=== PATIENT | female | born 2000 | race Hispanic/Latino ===

== ENCOUNTER 2021-06-05 20:03 | Emergency (ER) | payer MEDICARE ==
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
[2021-06-05 22:39] LABS: Basophils % (Auto) 0.4 % (0.0-1.8); Eosinophils % (Auto) 0.1 % (0.0-4.3); Hematocrit 39.1 % (30.3-42.9); Hemoglobin 13.7 gm/dl (10.1-14.3); Lymphocytes # (Auto) 1.8 K/mm3 (1.2-5.4); Lymphocytes % (Auto) 21.4 % (13.4-35.0); Mean Corpuscular HGB Conc 35 % (30-34); Mean Corpuscular Volume 89 fl (79-97); Monocytes # (Auto) 0.6 K/mm3 (0.0-0.8); Monocytes % (Auto) 7.1 % (0.0-7.3); Platelet Count 355 K/mm3 (140-440)
[2021-06-05 22:56] LABS: Blood Urea Nitrogen 8 mg/dL (7-17); Calcium 10.1 mg/dL (8.4-10.2); Hemolysis Index 3
[2021-06-05 23:04] LABS: BUN/Creatinine Ratio 11
[2021-06-06 09:08] LABS: Bacteria,Urine 2+ /HPF (Negative); Bilirubin,Urine NEG (Negative); Blood,Urine NEG (Negative); Color,Urine Amber (Yellow); Mucus,Urine 3+ /HPF
[2021-06-06 09:09] LABS: WBC,Urine > 182.0 /HPF (0.0-6.0)
[2021-06-06 09:14] LABS: Amphetamine Screen,Urine Negative; Benzodiazepines Screen,Urine Negative; Cannabinoid Screen,Urine Negative; Cocaine Screen,Urine Negative; Methadone Screen,Urine Negative; Opiate Screen,Urine Negative
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
--- NOTE | 2021-06-06 12:28 | Event Note ---
Date: 06/06/21 S: Patient has no complaints O: Vital signs are stable. Patient calm and cooperative. A: Bipolar disorder, autism P: Patient has been seen, evaluated, cleared by psychiatry team. She will be discharged at this time. Case management will be consulted as the personal half-way the patient came from does not want her to return.
--- NOTE | 2021-06-07 10:13 | Emergency Department Report ---
Blank Doc - Documentation Documentation: Patient has been seen by psychiatric services and cleared from a psychiatric p erspective and medical perspective. It was felt that this represented a behavior issue. We are awaiting case management placement.
--- NOTE | 2021-06-08 10:35 | Event Note ---
Date: 06/08/21 awaiting placement/evaluation by mental health
[2021-06-09 08:32] VITALS: BP 96/57
== END 2021-06-09 18:56 | disposition home or self-care (01) ==
LOC: ED 20:03 → EEVIPCON 20:03 → ED 06-09 18:56
DX: R41.82 Altered mental status, unspecified (principal); F22 Delusional disorders; Z91.018 Allergy to other foods
CPT/HCPCS: 36415; 80048; 80307; 80320; 81001; 84703; 85025; 99284; G0480

== ENCOUNTER 2021-06-09 22:19 | Emergency (ER) | payer MEDICARE ==
--- NOTE | 2021-06-09 23:49 | Emergency Department Report ---
ED Psych HPI - General Chief Complaint: Medical Clearance Stated Complaint: MH EVAL Time Seen by Provider: 06/09/21 23:45 Source: EMS Mode of arrival: Stretcher Limitations: No Limitations - History of Present Illness Initial Comments: Patient is a 21-year-old female who presents emergency room for agitation and aggressive behavior towards the staff at her half-way. Patient states that she was mad because they were treating her right. Patient states she started throwing chairs and tables at them. Patient states that the called EMS to bring her to the hospital. Patient states that she does not feel like she can control herself around them because they make her so mad so often. Patient denies suicidal ideation. Patient denies hallucinations. Patient brought in by EMS. EMS states the patient is not able to collect that half-way because this is the second time today she has become agitated and violent towards the staff. Patient has a history of bipolar and autism. -: Sudden Associated Psychiatric Symptoms: racing thoughts History of same: Yes Quality: constant Improves With: none Worsens With: none Context: not taking psychiatric Associated Symptoms: denies: confusion, headache, shortness of breath, nausea, vomiting, syncope, insomnia - Related Data Home Medications Medication Instructions Recorded Confirmed Last Taken Unobtainable 06/06/21 06/12/21 Unknown Allergies Allergy/AdvReac Type Severity Reaction Status Date / Time orange juice AdvReac Vomiting Verified 06/09/21 23:34 ED Review of Systems ROS: Stated complaint: MH EVAL Other details as noted in HPI Constitutional: denies: chills, fever Eyes: denies: eye pain, eye discharge, vision change ENT: denies: ear pain, throat pain Respiratory: denies: cough, shortness of breath, wheezing Cardiovascular: denies: chest pain, palpitations Endocrine: no symptoms reported Gastrointestinal: denies: abdominal pain, nausea, diarrhea Genitourinary: denies: urgency, dysuria, discharge Musculoskeletal: denies: back pain, joint swelling, arthralgia Skin: denies: rash, lesions Neurological: denies: headache, weakness, paresthesias Psychiatric: as per HPI. denies: anxiety, depression Hematological/Lymphatic: denies: easy bleeding, easy bruising ED Past Medical Hx - Past Medical History Previous Medical History?: Yes Hx Psychiatric Treatment: Yes (autism, behavior issues) - Surgical History Past Surgical History?: No - Family History Family history: no significant - Social History Smoking Status: Unknown if ever smoked Substance Use Type: None - Medications Home Medications: Home Medications Medication Instructions Recorded Confirmed Last Taken Type Unobtainable 06/06/21 06/12/21 Unknown History ED Physical Exam - General Limitations: No Limitations General appearance: alert, in no apparent distress - Head Head exam: Present: atraumatic, normocephalic - Eye Eye exam: Present: normal appearance - ENT ENT exam: Present: mucous membranes moist - Neck Neck exam: Present: normal inspection - Respiratory Respiratory exam: Present: normal lung sounds bilaterally. Absent: respiratory distress - Cardiovascular Cardiovascular Exam: Present: regular rate, normal rhythm. Absent: systolic murmur, diastolic murmur, rubs, gallop - GI/Abdominal GI/Abdominal exam: Present: soft, normal bowel sounds - Extremities Exam Extremities exam: Present: normal inspection - Back Exam Back exam: Present: normal inspection - Neurological Exam Neurological exam: Present: alert, oriented X3 - Psychiatric Psychiatric exam: Present: flat affect - Skin Skin exam: Present: warm, dry, intact, normal color. Absent: rash ED Course Vital Signs 06/09/21 06/10/21 06/10/21 23:34 00:38 07:45 Temperature 98.7 F 98.7 F 97.6 F Pulse Rate 70 70 67 Respiratory 18 18 Rate Blood Pressure 98/64 Blood Pressure 98/64 111/60 [Right] O2 Sat by Pulse 100 100 98 Oximetry 06/10/21 06/11/21 06/11/21 19:55 02:12 07:54 Temperature 98.6 F 98.6 F 99.2 F Pulse Rate 59 L 58 L 89 Respiratory 72 H 16 18 Rate Blood Pressure Blood Pressure 105/59 95/56 123/59 [Right] O2 Sat by Pulse 98 99 96 Oximetry 06/11/21 06/11/21 06/12/21 07:55 20:22 05:52 Temperature 98.8 F 98.7 F Pulse Rate 63 81 Respiratory 16 18 Rate Blood Pressure Blood Pressure 110/67 105/69 [Right] O2 Sat by Pulse 96 98 98 Oximetry 06/12/21 06/12/21 06/12/21 08:48 08:54 21:18 Temperature 97.8 F Pulse Rate 90 63 Respiratory 20 18 Rate Blood Pressure Blood Pressure 113/66 117/70 [Right] O2 Sat by Pulse 99 99 100 Oximetry 06/12/21 06/13/21 06/13/21 21:27 08:17 20:54 Temperature 98.9 F 98.6 F Pulse Rate 92 H Respiratory 18 Rate Blood Pressure Blood Pressure 123/84 [Right] O2 Sat by Pulse 98 97 Oximetry 06/13/21 06/14/21 06/14/21 20:56 08:18 20:48 Temperature 98.2 F 98.5 F Pulse Rate 77 91 H Respiratory 16 18 Rate Blood Pressure Blood Pressure 125/75 124/79 [Right] O2 Sat by Pulse 97 97 99 Oximetry 06/15/21 06/16/21 06/16/21 20:57 01:30 07:49 Temperature 98.3 F 97.3 F L 97.6 F Pulse Rate 70 70 80 Respiratory 16 18 18 Rate Blood Pressure Blood Pressure 109/66 109/75 111/62 [Right] O2 Sat by Pulse 98 98 97 Oximetry 06/16/21 06/16/21 08:38 22:28 Temperature 98.6 F Pulse Rate 98 H Respiratory 20 Rate Blood Pressure Blood Pressure 115/70 [Right] O2 Sat by Pulse 97 98 Oximetry - Reevaluation(s) Reevaluation #1: Patient is medically cleared. Patient remained in the ER as an ER hold until the patient is cleared by the psychiatry team. Patient's final disposition will come from our psychiatry. 06/10/21 02:17 ED Medical Decision Making - Lab Data Result diagrams: 06/09/21 23:52 06/09/21 23:52 - Medical Decision Making Patient is a 21-year-old female that presents emergency room for violent behavior and agitation. Patient was sent here from her half-way. Patient brought in by EMS. EMS states that the half-way states she is not welcome back. Patient was evaluated. Patient stated that she did not feel like she can control her emotions and go back to the same half-way. Patient placed on a ER hold. Patient had labs done. Patient's labs were essentially unremarkable. Patient is medically cleared. Patient will remain in the ER as an ER hold until the patient is cleared psychiatry team. Patient's final disposition will come from our psychiatry team. - Differential Diagnosis Agitation, bipolar, autism, psychosis Critical care attestation.: If time is entered above; I have spent that time in minutes in the direct care of this critically ill patient, excluding procedure time. ED Disposition Clinical Impression: Aggressive behavior, Autism, Bipolar disorder Disposition: 01 HOME / SELF CARE / HOMELESS Is pt being admited?: No Does the pt Need Aspirin: No Condition: Stable Additional Instructions: OUTPATIENT MENTAL HEALTH RESOURCES [facility], [facility] Raj Boone MD: [address], [address] [place] [address] [place] [address] [place] [facility]: [employer] [address] [place] [address] [place] [address] [phone] [facility] Integr[facility] Psychiat[facility]: [facility]: [address] [facility] [address] [facility] [place] [address] [facility] [address] [place] [facility]: Rinku Jolly MD: [address] [facility] [address] [facility] [id number] [facility]: [address] [place], [place] [id number] [phone] [place] CRISIS AND ACCESS LINE: Referrals: PRIMARY CAREMD [Primary Care Provider] - 3-5 Days Time of Disposition: 02:18
[2021-06-10 00:26] LABS: Hematocrit 37.2 % (30.3-42.9); Hemoglobin 12.9 gm/dl (10.1-14.3); Mean Corpuscular HGB Conc 35 % (30-34); Mean Corpuscular Volume 88 fl (79-97); Platelet Count 318 K/mm3 (140-440); Red Blood Count 4.22 M/mm3 (3.65-5.03); Red Cell Distribution Width 12.8 % (13.2-15.2)
[2021-06-10 00:37] LABS: Alanine Aminotransferase 15 units/L (7-56); Albumin 4.3 g/dL (3.9-5); Blood Urea Nitrogen 7 mg/dL (7-17); Calcium 9.8 mg/dL (8.4-10.2); Hemolysis Index 3
[2021-06-10 00:42] LABS: BUN/Creatinine Ratio 14
[2021-06-10 01:54] LABS: Total Cells Counted 100
[2021-06-10 01:55] LABS: Platelet Estimate Consistent w Auto; RBC Morphology Normal
[2021-06-10] MEDS ORDERED: POTASSIUM CHLORIDE ER 20 MEQ TAB PO ONE (09:40)
--- NOTE | 2021-06-10 10:23 | Consultation ---
History of Present Illness - Reason for Consult Consult date: 06/10/21 Reason for consult: agitation - History of Present Psychiatric Illness The patient was seen today, She is a 21 y/o female with a history of autism and bipolar, whom I evaluated the other day. The patient was cleared by psych, in which case management was consulted. She was sent back to her longterm. Once there she became agitated and started throwing chairs. The brought her back to the ER. During my evaluation the patient is calm and cooperative. She denies SI/HI or hallucinations. When talking with the patient and asking her why did she become upset, she replies "I don't know." She then says "If I do that again will they not let me stay there?" I told her they might not. She says "I don't won't to go there anyway." PAST PSYCHIATRIC HISTORY: Diagnoses: Autism, bipolar Suicide attempts or Self-harm behavior: Yes Prior psychiatric hospitalizations: Yes Substance Abuse history: Denies Previous psychiatric medications tried: seroquel Outpatient treatment: Yes PAST MEDICAL HISTORY: None reported or document Family Psychiatric History: None reported or documented SOCIAL HISTORY Marital Status: Single Living Arrangements: [facility] Employment Status: disabled Access to guns/weapons: Denies Education: History of Abuse: denies Legal History: Denies REVIEW OF SYSTEMS Constitutional: Negative for weight loss ENT: Negative for stridor Respiratory: Negative for cough or hemoptysis All other systems reviewed and are negative MENTAL STATUS EXAMINATION General Appearance and Behavior: Age appropriate, good hygiene, wearing appr opriate clothes, calm, polite, cooperative Cooperation: Cooperative Psychomotor Behavior: Psychomotor normal Mood: good Affect and affective range: Congruent with stated mood Thought Process: circumstantial Thought Content: None Speech: Normal volume, Regular rate and rhythm, Suicidal Ideation: Denies Homicidal Ideation:Denies Hallucinations: Denies Delusions:Denies Impulse Control: Impaired Insight and Judgment: poor Memory: limited Attention: attentive Orientation: alert and oriented Assessment (1) Austic Disorder (2) Hx of Bipolar Treatment Plan Continue home medications previously prescribed The patient to comply with previously prescribed medications Risks, benefits and alternatives of medications discussed with the patient, questions answered and consent obtained from patient. PSYCHOTHERAPY: Supportive psychotherapy provided MEDICAL: Per primary team DELIRIUM PRECAUTIONS: Please re-orient patient frequently, keep lights on during the day, and minimize benzodiazepines and opiates as these medications could worsen patient's confusion. 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 FOLLOW-UP: Will sing off. Thanks Case staffed with Dr. Hurst Medications and Allergies Allergies Allergy/AdvReac Type Severity Reaction Status Date / Time orange juice AdvReac Vomiting Verified 06/09/21 23:34 Home Medications Medication Instructions Recorded Confirmed Last Taken Type Unobtainable 06/06/21 06/06/21 Unknown History Mental Status Exam - Vital signs Last Vital Signs Temp 97.6 F 06/10/21 07:45 Pulse 67 06/10/21 07:45 Resp 18 06/10/21 07:45 BP 111/60 06/10/21 07:45 Pulse Ox 98 06/10/21 07:45 Results Result Diagrams: 06/09/21 23:52 06/09/21 23:52 Abnormal lab results 06/09/21 06/09/21 06/09/21 Range/Units 23:52 23:52 23:52 MCHC 35 H (30-34) % RDW 12.8 L (13.2-15.2) % Potassium 3.4 L (3.6-5.0) mmol/L Creatinine 0.5 L (0.6-1.2) mg/dL Salicylates < 0.3 L (2.8-20.0) mg/dL Acetaminophen (10.0-30.0) ug/mL 06/09/21 Range/Units 23:52 MCHC (30-34) % RDW (13.2-15.2) % Potassium (3.6-5.0) mmol/L Creatinine (0.6-1.2) mg/dL Salicylates (2.8-20.0) mg/dL Acetaminophen 5.0 L (10.0-30.0) ug/mL All other labs normal.
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
[2021-06-10] MEDS ORDERED: ZIPRASIDONE MESYLATE 20 MG VIAL IM ONE ×2 (10:50→10:53)
[2021-06-10] MEDS ORDERED: WATER FOR INJ Sterile (PF) 10 ML ONE (10:53)
--- NOTE | 2021-06-11 19:10 | Event Note ---
Date: 06/11/21 Patient still waiting for case management resolution of her her case. Patient still medically stable with no issues.
--- NOTE | 2021-06-12 11:41 | Emergency Department Report ---
Blank Doc - Documentation Documentation: Patient rests comfortably. We are awaiting case management resolution. Patient has been in and out of multiple personal care homes. Due to developmental delay versus autism versus some of her behavioral issues, she has been return to the ED multiple times. Case management has been facilitating state reporting of these facilities that do not put this patient. She remains medically stable at this time.
--- NOTE | 2021-06-13 13:27 | Emergency Department Report ---
Blank Doc - Documentation Documentation: Patient is resting today. Case management disposition is still pending.
[2021-06-14] MEDS ORDERED: diphenhydrAMINE 25 MG CAP PO PRN (10:48)
[2021-06-14] MEDS ORDERED: ACETAMINOPHEN 325 MG TAB PO PRN (10:48)
[2021-06-14] MEDS ORDERED: ONDANSETRON 4 MG ODT TAB PO PRN (10:48)
--- NOTE | 2021-06-14 10:52 | Event Note ---
Date: 06/14/21 The patient was evaluated in the emergency department for symptoms described in the history of present illness. He/she was evaluated in the context of the global COVID-19 pandemic, which necessitated consideration that the patient might be at risk for infection with the virus that causes COVID-19. Institutional protocols and algorithms that pertain to the evaluation of patients at risk for COVID-19 are in a state of rapid change based on information released by regulatory bodies including the CDC and federal and state organizations. These policies and algorithms were followed during the patient's care in the emergency department. Please note that these policies, procedures and recommendations changed on a rapid basis. Patient resting comfortably in stretcher. She is in no acute distress. Nursing team endorses no acute issues. She was deemed medically suitable for discharge on her initial ER evaluation. She remains medically suitable for discharge at this time. Prior urinalysis from previous visit is reviewed and appreciated. Uncertain of treatment is initiated. Have requested repeat urinalysis. Have requested that nursing team reconcile home medications. This patient remains medically suitable for social disposition at this time, which appears to be her major issue. Unfortunately, secondary to this patient's developmental delay/autism, she cannot be discharged on her own recognizance, and will require a half-way or adult to assume care for her, thus our case management team is involved. Their input and recommendations are reviewed and appreciated. As needed medications are ordered. Vital Signs 06/09/21 06/10/21 06/10/21 23:34 00:38 07:45 Temperature 98.7 F 98.7 F 97.6 F Pulse Rate 70 70 67 Respiratory 18 18 Rate Blood Pressure 98/64 Blood Pressure 98/64 111/60 [Right] O2 Sat by Pulse 100 100 98 Oximetry 06/10/21 06/11/21 06/11/21 19:55 02:12 07:54 Temperature 98.6 F 98.6 F 99.2 F Pulse Rate 59 L 58 L 89 Respiratory 72 H 16 18 Rate Blood Pressure Blood Pressure 105/59 95/56 123/59 [Right] O2 Sat by Pulse 98 99 96 Oximetry 06/11/21 06/11/21 06/12/21 07:55 20:22 05:52 Temperature 98.8 F 98.7 F Pulse Rate 63 81 Respiratory 16 18 Rate Blood Pressure Blood Pressure 110/67 105/69 [Right] O2 Sat by Pulse 96 98 98 Oximetry 06/12/21 06/12/21 06/12/21 08:48 08:54 21:18 Temperature 97.8 F Pulse Rate 90 63 Respiratory 20 18 Rate Blood Pressure Blood Pressure 113/66 117/70 [Right] O2 Sat by Pulse 99 99 100 Oximetry 06/12/21 06/13/21 06/13/21 21:27 08:17 20:54 Temperature 98.9 F 98.6 F Pulse Rate 92 H Respiratory 18 Rate Blood Pressure Blood Pressure 123/84 [Right] O2 Sat by Pulse 98 97 Oximetry 06/13/21 06/14/21 20:56 08:18 Temperature 98.2 F 98.5 F Pulse Rate 77 91 H Respiratory 16 18 Rate Blood Pressure Blood Pressure 125/75 124/79 [Right] O2 Sat by Pulse 97 97 Oximetry Lab Results 06/09/21 06/09/21 06/09/21 Range/Units 23:52 23:52 23:52 WBC 8.0 (4.5-11.0) K/mm3 RBC 4.22 (3.65-5.03) M/mm3 Hgb 12.9 (10.1-14.3) gm/dl Hct 37.2 (30.3-42.9) % MCV 88 (79-97) fl MCH 31 (28-32) pg MCHC 35 H (30-34) % RDW 12.8 L (13.2-15.2) % Plt Count 318 (140-440) K/mm3 [place] % (Auto) Associate Merchandiser Add Manual Diff Complete Total Counted 100 Seg Neuts % (Manual) 65.0 (40.0-70.0) % Lymphocytes % (Manual) 32.0 (13.4-35.0) % Monocytes % (Manual) 3.0 (0.0-7.3) % Nucleated RBC % Not Reportable Seg Neutrophils # Man 5.2 (1.8-7.7) K/mm3 Band Neutrophils # 0.0 K/mm3 Lymphocytes # (Manual) 2.6 (1.2-5.4) K/mm3 Abs React Lymphs (Man) 0.0 K/mm3 Monocytes # (Manual) 0.2 (0.0-0.8) K/mm3 Eosinophils # (Manual) 0.0 (0.0-0.4) K/mm3 Basophils # (Manual) 0.0 (0.0-0.1) K/mm3 Metamyelocytes # 0.0 K/mm3 Myelocytes # 0.0 K/mm3 Promyelocytes # 0.0 K/mm3 Blast Cells # 0.0 K/mm3 WBC Morphology Not Reportable Hypersegmented Neuts Not Reportable Hyposegmented Neuts Not Reportable Hypogranular Neuts Not Reportable Smudge Cells Not Reportable Toxic Granulation Not Reportable Toxic Vacuolation Not Reportable Dohle Bodies Not Reportable Pelger-Huet Anomaly Not Reportable Deanna Rods Not Reportable Platelet Estimate Consistent w auto Clumped Platelets Not Reportable Plt Clumps, EDTA Not Reportable Large Platelets Not Reportable Giant Platelets Not Reportable Platelet Satelliting Not Reportable Plt Morphology Comment Not Reportable RBC Morphology Normal Dimorphic RBCs Not Reportable Polychromasia Not Reportable Hypochromasia Not Reportable Poikilocytosis Not Reportable Anisocytosis Not Reportable Microcytosis Not Reportable Macrocytosis Not Reportable Spherocytes Not Reportable Pappenheimer Bodies Not Reportable Sickle Cells Not Reportable Target Cells Not Reportable Tear Drop Cells Not Reportable Ovalocytes Not Reportable Helmet Cells Not Reportable Marie-[place] Bodies Not Reportable Gunlock Rings Not Reportable [place] Cells Not Reportable Bite Cells Not Reportable Crenated Cell Not Reportable Elliptocytes Not Reportable Acanthocytes (Spur) Not Reportable Rouleaux Not Reportable Hemoglobin C Crystals Not Reportable Schistocytes Not Reportable Malaria parasites Not Reportable Robb Bodies Not Reportable Hem Pathologist Commnt No Sodium 138 (137-145) mmol/L Potassium 3.4 L (3.6-5.0) mmol/L Chloride 100.7 (98-107) mmol/L Carbon Dioxide 22 (22-30) mmol/L Anion Gap 19 mmol/L BUN 7 (7-17) mg/dL Creatinine 0.5 L (0.6-1.2) mg/dL Estimated GFR > 60 ml/min BUN/Creatinine Ratio 14 % Glucose 96 (65-100) mg/dL Calcium 9.8 (8.4-10.2) mg/dL Total Bilirubin 0.20 (0.1-1.2) mg/dL AST 14 (5-40) units/L ALT 15 (7-56) units/L Alkaline Phosphatase 79 (35-129) units/L Total Protein 7.1 (6.3-8.2) g/dL Albumin 4.3 (3.9-5) g/dL Albumin/Globulin Ratio 1.5 % HCG, Qual (Negative) Salicylates < 0.3 L (2.8-20.0) mg/dL Acetaminophen (10.0-30.0) ug/mL Plasma/Serum Alcohol (0-0.07) % Coronavirus (PCR) (Negative) 06/09/21 06/09/21 06/09/21 Range/Units 23:52 23:52 23:52 WBC (4.5-11.0) K/mm3 RBC (3.65-5.03) M/mm3 Hgb (10.1-14.3) gm/dl Hct (30.3-42.9) % MCV (79-97) fl MCH (28-32) pg MCHC (30-34) % RDW (13.2-15.2) % Plt Count (140-440) K/mm3 [place] % (Auto) Add Manual Diff Total Counted Seg Neuts % (Manual) (40.0-70.0) % Lymphocytes % (Manual) (13.4-35.0) % Monocytes % (Manual) (0.0-7.3) % Nucleated RBC % Seg Neutrophils # Man (1.8-7.7) K/mm3 Band Neutrophils # K/mm3 Lymphocytes # (Manual) (1.2-5.4) K/mm3 Abs React Lymphs (Man) K/mm3 Monocytes # (Manual) (0.0-0.8) K/mm3 Eosinophils # (Manual) (0.0-0.4) K/mm3 Basophils # (Manual) (0.0-0.1) K/mm3 Metamyelocytes # K/mm3 Myelocytes # K/mm3 Promyelocytes # K/mm3 Blast Cells # K/mm3 WBC Morphology Hypersegmented Neuts Hyposegmented Neuts Hypogranular Neuts Smudge Cells Toxic Granulation Toxic Vacuolation Dohle Bodies Pelger-Huet Anomaly Deanna Rods Platelet Estimate Clumped Platelets Plt Clumps, EDTA Large Platelets Giant Platelets Platelet Satelliting Plt Morphology Comment RBC Morphology Dimorphic RBCs Polychromasia Hypochromasia Poikilocytosis Anisocytosis Microcytosis Macrocytosis Spherocytes Pappenheimer Bodies Sickle Cells Target Cells Tear Drop Cells Ovalocytes Helmet Cells Marie-[place] Bodies Gunlock Rings [place] Cells Bite Cells Crenated Cell Elliptocytes Acanthocytes (Spur) Rouleaux Hemoglobin C Crystals Schistocytes Malaria parasites Robb Bodies Hem Pathologist Commnt Sodium (137-145) mmol/L Potassium (3.6-5.0) mmol/L Chloride (98-107) mmol/L Carbon Dioxide (22-30) mmol/L Anion Gap mmol/L BUN (7-17) mg/dL Creatinine (0.6-1.2) mg/dL Estimated GFR ml/min BUN/Creatinine Ratio % Glucose (65-100) mg/dL Calcium (8.4-10.2) mg/dL Total Bilirubin (0.1-1.2) mg/dL AST (5-40) units/L ALT (7-56) units/L Alkaline Phosphatase (35-129) units/L Total Protein (6.3-8.2) g/dL Albumin (3.9-5) g/dL Albumin/Globulin Ratio % HCG, Qual Negative (Negative) Salicylates (2.8-20.0) mg/dL Acetaminophen 5.0 L (10.0-30.0) ug/mL Plasma/Serum Alcohol < 0.01 (0-0.07) % Coronavirus (PCR) (Negative) 06/10/21 Range/Units Unknown WBC (4.5-11.0) K/mm3 RBC (3.65-5.03) M/mm3 Hgb (10.1-14.3) gm/dl Hct (30.3-42.9) % MCV (79-97) fl MCH (28-32) pg MCHC (30-34) % RDW (13.2-15.2) % Plt Count (140-440) K/mm3 [place] % (Auto) Add Manual Diff Total Counted Seg Neuts % (Manual) (40.0-70.0) % Lymphocytes % (Manual) (13.4-35.0) % Monocytes % (Manual) (0.0-7.3) % Nucleated RBC % Seg Neutrophils # Man (1.8-7.7) K/mm3 Band Neutrophils # K/mm3 Lymphocytes # (Manual) (1.2-5.4) K/mm3 Abs React Lymphs (Man) K/mm3 Monocytes # (Manual) (0.0-0.8) K/mm3 Eosinophils # (Manual) (0.0-0.4) K/mm3 Basophils # (Manual) (0.0-0.1) K/mm3 Metamyelocytes # K/mm3 Myelocytes # K/mm3 Promyelocytes # K/mm3 Blast Cells # K/mm3 WBC Morphology Hypersegmented Neuts Hyposegmented Neuts Hypogranular Neuts Smudge Cells Toxic Granulation Toxic Vacuolation Dohle Bodies Pelger-Huet Anomaly Deanna Rods Platelet Estimate Clumped Platelets Plt Clumps, EDTA Large Platelets Giant Platelets Platelet Satelliting Plt Morphology Comment RBC Morphology Dimorphic RBCs Polychromasia Hypochromasia Poikilocytosis Anisocytosis Microcytosis Macrocytosis Spherocytes Pappenheimer Bodies Sickle Cells Target Cells Tear Drop Cells Ovalocytes Helmet Cells Marie-[place] Bodies Gunlock Rings [place] Cells Bite Cells Crenated Cell Elliptocytes Acanthocytes (Spur) Rouleaux Hemoglobin C Crystals Schistocytes Malaria parasites Robb Bodies Hem Pathologist Commnt Sodium (137-145) mmol/L Potassium (3.6-5.0) mmol/L Chloride (98-107) mmol/L Carbon Dioxide (22-30) mmol/L Anion Gap mmol/L BUN (7-17) mg/dL Creatinine (0.6-1.2) mg/dL Estimated GFR ml/min BUN/Creatinine Ratio % Glucose (65-100) mg/dL Calcium (8.4-10.2) mg/dL Total Bilirubin (0.1-1.2) mg/dL AST (5-40) units/L ALT (7-56) units/L Alkaline Phosphatase (35-129) units/L Total Protein (6.3-8.2) g/dL Albumin (3.9-5) g/dL Albumin/Globulin Ratio % HCG, Qual (Negative) Salicylates (2.8-20.0) mg/dL Acetaminophen (10.0-30.0) ug/mL Plasma/Serum Alcohol (0-0.07) % Coronavirus (PCR) Negative (Negative)
--- NOTE | 2021-06-16 10:41 | Event Note ---
Date: 06/16/21 Patient is 21 years old female with history of autism. Patient has been in the ER for few days now waiting for case management placement. Patient is quiet with no issues overnight. Vital signs reviewed and is unremarkable. We will continue to monitor.
[2021-06-16] MEDS ORDERED: ACETAMINOPHEN 325 MG TAB PO ONE (15:05)
[2021-06-16] MEDS ORDERED: LORazepam 2 MG/ML VIAL ONE (16:57)
[2021-06-16] MEDS: LORazepam 2 MG/ML VIAL IM PRN (17:03)
--- NOTE | 2021-06-17 10:30 | Event Note ---
Date: 06/17/21 Patient sleeping comfortably no acute distress. No overnight issues. Vital signs reviewed and stable. Patient is pending placement by case management.
--- NOTE | 2021-06-18 16:33 | Event Note ---
Date: 06/18/21 Patient has been cleared by psych. We are still currently awaiting case management placement. Vital signs are stable. Patient has no complaints.
--- NOTE | 2021-06-19 16:25 | Event Note ---
Date: 06/19/21 Still awaiting case management placement. No overnight events per nursing. Patient has no complaints. She is calm and cooperative.
--- NOTE | 2021-06-20 12:38 | Event Note ---
Date: 06/20/21 Patient is still waiting case management placement. No events overnight. Vital signs have been reassuring including being afebrile. We will continue to monitor during her ED course.
--- NOTE | 2021-06-21 12:37 | Event Note ---
Date: 06/21/21 Awaiting case management placement. No overnight events per nursing. Patient has no complaints. She is calm and cooperative.
[2021-06-22] MEDS ORDERED: ZIPRASIDONE MESYLATE 20 MG VIAL IM ONE (19:57)
--- NOTE | 2021-06-23 10:29 | Event Note ---
Vital signs stable. No current medical issues. Awaiting placement.
--- NOTE | 2021-06-23 13:38 | Event Note ---
Date: 06/23/21 Daisy Huggins is a 21y/o female patient whom was evaluated and cleared by psych not long after her presentation to the ER. The patient was brought in for behavioral issues; agitation, combativeness. Received from Dani Borrego welfare case worker, and Norma Gimenez, welfare case worker for ER stating they had secured placment for the patient but the custodial is not willing to take the patient without being on any medication for agitation and combativeness. Risperidone 0.5mg po BID #60, no refills called in to [facility],
[2021-06-23] MEDS ORDERED: ACETAMINOPHEN 325 MG TAB ONE (22:50)
--- NOTE | 2021-06-24 11:07 | Event Note ---
Date: 06/24/21 Patient was cleared by the psychiatry team yesterday and the patient's residential refused to take the patient unless something was prescribed for agitation. This was called into a pharmacy yesterday but the patient still has not secured transportation. Patient has had no changes in condition overnight and the patient is stable for discharge. Discussed with nurse at this time to reevaluate the patient's transportation status.
--- NOTE | 2021-06-25 11:05 | Event Note ---
Date: 06/25/21 Patient seen and examined. She does not endorse any acute complaints to myself. She was discharged yesterday. I am told that nobody answered the door or phone call at the receiving residence, and I am also told that local law enforcement have been involved by our case management team, to complete the process of transporting this patient back to receiving facility. Laboratory studies, vital signs, case management, nursing documentation reviewed and appreciated. Prior documentation reviewed and appreciated. The patient remains medically suitable for disposition and discharge from the emergency room at this time. Lab Results 06/09/21 06/09/21 06/09/21 Range/Units 23:52 23:52 23:52 WBC 8.0 (4.5-11.0) K/mm3 RBC 4.22 (3.65-5.03) M/mm3 Hgb 12.9 (10.1-14.3) gm/dl Hct 37.2 (30.3-42.9) % MCV 88 (79-97) fl MCH 31 (28-32) pg MCHC 35 H (30-34) % RDW 12.8 L (13.2-15.2) % Plt Count 318 (140-440) K/mm3 [place] % (Auto) Toucher Up Add Manual Diff Complete Total Counted 100 Seg Neuts % (Manual) 65.0 (40.0-70.0) % Lymphocytes % (Manual) 32.0 (13.4-35.0) % Monocytes % (Manual) 3.0 (0.0-7.3) % Nucleated RBC % Not Reportable Seg Neutrophils # Man 5.2 (1.8-7.7) K/mm3 Band Neutrophils # 0.0 K/mm3 Lymphocytes # (Manual) 2.6 (1.2-5.4) K/mm3 Abs React Lymphs (Man) 0.0 K/mm3 Monocytes # (Manual) 0.2 (0.0-0.8) K/mm3 Eosinophils # (Manual) 0.0 (0.0-0.4) K/mm3 Basophils # (Manual) 0.0 (0.0-0.1) K/mm3 Metamyelocytes # 0.0 K/mm3 Myelocytes # 0.0 K/mm3 Promyelocytes # 0.0 K/mm3 Blast Cells # 0.0 K/mm3 WBC Morphology Not Reportable Hypersegmented Neuts Not Reportable Hyposegmented Neuts Not Reportable Hypogranular Neuts Not Reportable Smudge Cells Not Reportable Toxic Granulation Not Reportable Toxic Vacuolation Not Reportable Dohle Bodies Not Reportable Pelger-Huet Anomaly Not Reportable Deanna Rods Not Reportable Platelet Estimate Consistent w auto Clumped Platelets Not Reportable Plt Clumps, EDTA Not Reportable Large Platelets Not Reportable Giant Platelets Not Reportable Platelet Satelliting Not Reportable Plt Morphology Comment Not Reportable RBC Morphology Normal Dimorphic RBCs Not Reportable Polychromasia Not Reportable Hypochromasia Not Reportable Poikilocytosis Not Reportable Anisocytosis Not Reportable Microcytosis Not Reportable Macrocytosis Not Reportable Spherocytes Not Reportable Pappenheimer Bodies Not Reportable Sickle Cells Not Reportable Target Cells Not Reportable Tear Drop Cells Not Reportable Ovalocytes Not Reportable Helmet Cells Not Reportable [place] Bodies Not Reportable Gaastra Rings Not Reportable [place] Cells Not Reportable Bite Cells Not Reportable Crenated Cell Not Reportable Elliptocytes Not Reportable Acanthocytes (Spur) Not Reportable Rouleaux Not Reportable Hemoglobin C Crystals Not Reportable Schistocytes Not Reportable Malaria parasites Not Reportable Robb Bodies Not Reportable Hem Pathologist Commnt No Sodium 138 (137-145) mmol/L Potassium 3.4 L (3.6-5.0) mmol/L Chloride 100.7 (98-107) mmol/L Carbon Dioxide 22 (22-30) mmol/L Anion Gap 19 mmol/L BUN 7 (7-17) mg/dL Creatinine 0.5 L (0.6-1.2) mg/dL Estimated GFR > 60 ml/min BUN/Creatinine Ratio 14 % Glucose 96 (65-100) mg/dL Calcium 9.8 (8.4-10.2) mg/dL Total Bilirubin 0.20 (0.1-1.2) mg/dL AST 14 (5-40) units/L ALT 15 (7-56) units/L Alkaline Phosphatase 79 (35-129) units/L Total Protein 7.1 (6.3-8.2) g/dL Albumin 4.3 (3.9-5) g/dL Albumin/Globulin Ratio 1.5 % HCG, Qual (Negative) Salicylates < 0.3 L (2.8-20.0) mg/dL Acetaminophen (10.0-30.0) ug/mL Plasma/Serum Alcohol (0-0.07) % Coronavirus (PCR) (Negative) 06/09/21 06/09/21 06/09/21 Range/Units 23:52 23:52 23:52 WBC (4.5-11.0) K/mm3 RBC (3.65-5.03) M/mm3 Hgb (10.1-14.3) gm/dl Hct (30.3-42.9) % MCV (79-97) fl MCH (28-32) pg MCHC (30-34) % RDW (13.2-15.2) % Plt Count (140-440) K/mm3 [place] % (Auto) Add Manual Diff Total Counted Seg Neuts % (Manual) (40.0-70.0) % Lymphocytes % (Manual) (13.4-35.0) % Monocytes % (Manual) (0.0-7.3) % Nucleated RBC % Seg Neutrophils # Man (1.8-7.7) K/mm3 Band Neutrophils # K/mm3 Lymphocytes # (Manual) (1.2-5.4) K/mm3 Abs React Lymphs (Man) K/mm3 Monocytes # (Manual) (0.0-0.8) K/mm3 Eosinophils # (Manual) (0.0-0.4) K/mm3 Basophils # (Manual) (0.0-0.1) K/mm3 Metamyelocytes # K/mm3 Myelocytes # K/mm3 Promyelocytes # K/mm3 Blast Cells # K/mm3 WBC Morphology Hypersegmented Neuts Hyposegmented Neuts Hypogranular Neuts Smudge Cells Toxic Granulation Toxic Vacuolation Dohle Bodies Pelger-Huet Anomaly Deanna Rods Platelet Estimate Clumped Platelets Plt Clumps, EDTA Large Platelets Giant Platelets Platelet Satelliting Plt Morphology Comment RBC Morphology Dimorphic RBCs Polychromasia Hypochromasia Poikilocytosis Anisocytosis Microcytosis Macrocytosis Spherocytes Pappenheimer Bodies Sickle Cells Target Cells Tear Drop Cells Ovalocytes Helmet Cells [place] Bodies Gaastra Rings [place] Cells Bite Cells Crenated Cell Elliptocytes Acanthocytes (Spur) Rouleaux Hemoglobin C Crystals Schistocytes Malaria parasites Robb Bodies Hem Pathologist Commnt Sodium (137-145) mmol/L Potassium (3.6-5.0) mmol/L Chloride (98-107) mmol/L Carbon Dioxide (22-30) mmol/L Anion Gap mmol/L BUN (7-17) mg/dL Creatinine (0.6-1.2) mg/dL Estimated GFR ml/min BUN/Creatinine Ratio % Glucose (65-100) mg/dL Calcium (8.4-10.2) mg/dL Total Bilirubin (0.1-1.2) mg/dL AST (5-40) units/L ALT (7-56) units/L Alkaline Phosphatase (35-129) units/L Total Protein (6.3-8.2) g/dL Albumin (3.9-5) g/dL Albumin/Globulin Ratio % HCG, Qual Negative (Negative) Salicylates (2.8-20.0) mg/dL Acetaminophen 5.0 L (10.0-30.0) ug/mL Plasma/Serum Alcohol < 0.01 (0-0.07) % Coronavirus (PCR) (Negative) 06/10/21 06/24/21 Range/Units Unknown 08:23 WBC (4.5-11.0) K/mm3 RBC (3.65-5.03) M/mm3 Hgb (10.1-14.3) gm/dl Hct (30.3-42.9) % MCV (79-97) fl MCH (28-32) pg MCHC (30-34) % RDW (13.2-15.2) % Plt Count (140-440) K/mm3 [place] % (Auto) Add Manual Diff Total Counted Seg Neuts % (Manual) (40.0-70.0) % Lymphocytes % (Manual) (13.4-35.0) % Monocytes % (Manual) (0.0-7.3) % Nucleated RBC % Seg Neutrophils # Man (1.8-7.7) K/mm3 Band Neutrophils # K/mm3 Lymphocytes # (Manual) (1.2-5.4) K/mm3 Abs React Lymphs (Man) K/mm3 Monocytes # (Manual) (0.0-0.8) K/mm3 Eosinophils # (Manual) (0.0-0.4) K/mm3 Basophils # (Manual) (0.0-0.1) K/mm3 Metamyelocytes # K/mm3 Myelocytes # K/mm3 Promyelocytes # K/mm3 Blast Cells # K/mm3 WBC Morphology Hypersegmented Neuts Hyposegmented Neuts Hypogranular Neuts Smudge Cells Toxic Granulation Toxic Vacuolation Dohle Bodies Pelger-Huet Anomaly Deanna Rods Platelet Estimate Clumped Platelets Plt Clumps, EDTA Large Platelets Giant Platelets Platelet Satelliting Plt Morphology Comment RBC Morphology Dimorphic RBCs Polychromasia Hypochromasia Poikilocytosis Anisocytosis Microcytosis Macrocytosis Spherocytes Pappenheimer Bodies Sickle Cells Target Cells Tear Drop Cells Ovalocytes Helmet Cells [place] Bodies Gaastra Rings [place] Cells Bite Cells Crenated Cell Elliptocytes Acanthocytes (Spur) Rouleaux Hemoglobin C Crystals Schistocytes Malaria parasites Robb Bodies Hem Pathologist Commnt Sodium (137-145) mmol/L Potassium (3.6-5.0) mmol/L Chloride (98-107) mmol/L Carbon Dioxide (22-30) mmol/L Anion Gap mmol/L BUN (7-17) mg/dL Creatinine (0.6-1.2) mg/dL Estimated GFR ml/min BUN/Creatinine Ratio % Glucose (65-100) mg/dL Calcium (8.4-10.2) mg/dL Total Bilirubin (0.1-1.2) mg/dL AST (5-40) units/L ALT (7-56) units/L Alkaline Phosphatase (35-129) units/L Total Protein (6.3-8.2) g/dL Albumin (3.9-5) g/dL Albumin/Globulin Ratio % HCG, Qual (Negative) Salicylates (2.8-20.0) mg/dL Acetaminophen (10.0-30.0) ug/mL Plasma/Serum Alcohol (0-0.07) % Coronavirus (PCR) Negative Negative (Negative) Vital Signs 06/09/21 06/10/21 06/10/21 23:34 00:38 07:45 Temperature 98.7 F 98.7 F 97.6 F Pulse Rate 70 70 67 Respiratory 18 18 Rate Blood Pressure 98/64 Blood Pressure 98/64 111/60 [Right] O2 Sat by Pulse 100 100 98 Oximetry 06/10/21 06/11/21 06/11/21 19:55 02:12 07:54 Temperature 98.6 F 98.6 F 99.2 F Pulse Rate 59 L 58 L 89 Respiratory 72 H 16 18 Rate Blood Pressure Blood Pressure 105/59 95/56 123/59 [Right] O2 Sat by Pulse 98 99 96 Oximetry 06/11/21 06/11/21 06/12/21 07:55 20:22 05:52 Temperature 98.8 F 98.7 F Pulse Rate 63 81 Respiratory 16 18 Rate Blood Pressure Blood Pressure 110/67 105/69 [Right] O2 Sat by Pulse 96 98 98 Oximetry 06/12/21 06/12/21 06/12/21 08:48 08:54 21:18 Temperature 97.8 F Pulse Rate 90 63 Respiratory 20 18 Rate Blood Pressure Blood Pressure 113/66 117/70 [Right] O2 Sat by Pulse 99 99 100 Oximetry 06/12/21 06/13/21 06/13/21 21:27 08:17 20:54 Temperature 98.9 F 98.6 F Pulse Rate 92 H Respiratory 18 Rate Blood Pressure Blood Pressure 123/84 [Right] O2 Sat by Pulse 98 97 Oximetry 06/13/21 06/14/21 06/14/21 20:56 08:18 20:48 Temperature 98.2 F 98.5 F Pulse Rate 77 91 H Respiratory 16 18 Rate Blood Pressure Blood Pressure 125/75 124/79 [Right] O2 Sat by Pulse 97 97 99 Oximetry 06/15/21 06/16/21 06/16/21 20:57 01:30 07:49 Temperature 98.3 F 97.3 F L 97.6 F Pulse Rate 70 70 80 Respiratory 16 18 18 Rate Blood Pressure Blood Pressure 109/66 109/75 111/62 [Right] O2 Sat by Pulse 98 98 97 Oximetry 06/16/21 06/16/21 06/17/21 08:38 22:28 06:47 Temperature 98.6 F 98.6 F Pulse Rate 98 H 99 H Respiratory 20 18 Rate Blood Pressure Blood Pressure 115/70 120/77 [Right] O2 Sat by Pulse 97 98 100 Oximetry 06/17/21 06/17/21 06/17/21 08:00 09:21 20:24 Temperature 97.8 F 99.0 F Pulse Rate 83 69 Respiratory 20 16 Rate Blood Pressure Blood Pressure 120/63 104/55 [Right] O2 Sat by Pulse 100 100 98 Oximetry 06/18/21 06/18/21 06/18/21 01:53 10:44 19:59 Temperature 98.5 F 97.8 F Pulse Rate 82 74 Respiratory 16 18 Rate Blood Pressure Blood Pressure 95/57 108/59 [Right] O2 Sat by Pulse 97 98 100 Oximetry 06/18/21 06/19/21 06/19/21 20:07 02:24 09:28 Temperature 98.7 F 98.8 F 97.9 F Pulse Rate 82 82 83 Respiratory 18 16 18 Rate Blood Pressure Blood Pressure 113/59 116/58 139/69 [Right] O2 Sat by Pulse 99 98 98 Oximetry 06/19/21 06/20/21 06/20/21 20:20 10:00 20:22 Temperature 98.3 F 98.9 F 97.8 F Pulse Rate 86 89 94 H Respiratory 18 18 18 Rate Blood Pressure Blood Pressure 118/52 116/73 124/55 [Right] O2 Sat by Pulse 98 97 97 Oximetry 06/21/21 06/21/21 06/21/21 08:15 09:41 20:05 Temperature 97.6 F 98.7 F Pulse Rate 82 81 Respiratory 18 16 Rate Blood Pressure Blood Pressure 145/76 111/68 [Right] O2 Sat by Pulse 100 100 97 Oximetry 06/22/21 06/22/21 06/23/21 01:50 20:25 02:23 Temperature 98.7 F 98.6 F 98.8 F Pulse Rate 80 89 83 Respiratory 18 18 16 Rate Blood Pressure Blood Pressure 109/68 125/63 99/60 [Right] O2 Sat by Pulse 98 96 96 Oximetry 06/23/21 06/23/21 06/23/21 08:05 08:19 20:53 Temperature 99 F 98.1 F Pulse Rate 82 90 Respiratory 18 18 Rate Blood Pressure Blood Pressure 120/70 125/66 [Right] O2 Sat by Pulse 96 100 96 Oximetry 06/24/21 06/24/21 06/25/21 12:09 12:26 02:46 Temperature 97.7 F 97.2 F L Pulse Rate 74 81 Respiratory 20 18 18 Rate Blood Pressure Blood Pressure 118/67 114/60 [Right] O2 Sat by Pulse 98 98 99 Oximetry
[2021-06-25] MEDS ORDERED: LORazepam 2 MG/ML VIAL ONE (13:04)
[2021-06-25] MEDS: LORazepam 2 MG/ML VIAL IM PRN (13:19)
[2021-06-26] MEDS ORDERED: ALPRAZolam 0.5 MG TAB PO PRN (11:22)
--- NOTE | 2021-06-26 11:40 | Event Note ---
Date: 06/26/21 Patient seen and examined. She is awake, ambulating with a steady gait. She is somewhat agitated. However, this is essentially her baseline. She remains medically suitable for social disposition and placement at this time. Her medication list was provided yesterday. We have reconciled and continued appropriate home medications. Case management documentation reviewed and appreciated. Patient pending placement at this time. Nursing team reports no acute issues this morning
[2021-06-26] MEDS ORDERED: PROPRANOLOL HCL 20 MG PO SCH (13:00)
[2021-06-26] MEDS ORDERED: carBAMazepine 200 MG TAB PO SCH (14:00)
[2021-06-26] MEDS: cloNIDine 0.1 MG TAB PO SCH ×2 (14:11→22:31)
[2021-06-26] MEDS: BENZTROPINE 1 MG TAB PO SCH ×2 (14:12→22:32)
[2021-06-26] MEDS: CETIRIZINE 10 MG TAB PO SCH (14:12)
[2021-06-26] MEDS: metFORMIN XR 500MG TAB PO SCH (18:35)
[2021-06-26] MEDS: QUEtiapine 25 MG TAB PO SCH (18:35)
[2021-06-26] MEDS: LORazepam 2 MG/ML VIAL IM PRN (21:23)
[2021-06-26] MEDS ORDERED: LORazepam 2 MG/ML VIAL IM PRN (21:41)
[2021-06-26] MEDS ORDERED: NON-FORMULARY EACH (Clonidine Hcl [Clonidine Hcl] 0.3 MG Tablet) PO SCH (22:00)
[2021-06-26] MEDS ORDERED: NON-FORMULARY EACH (Quetiapine Fumarate [Seroquel] 50 MG Tablet) PO SCH ×2 (22:00)
[2021-06-26] MEDS ORDERED: NALTREXONE HCL 50 MG PO SCH (22:00)
[2021-06-26] MEDS: QUEtiapine 100 MG TAB PO SCH (22:32)
[2021-06-26] MEDS: TOPIRAMATE TAB 25 MG TAB PO SCH (22:32)
[2021-06-26] MEDS: PROPRANOLOL 10 MG TAB PO SCH (22:32)
[2021-06-26] MEDS: LITHIUM CARBONATE 150 MG CAP PO SCH (22:32)
[2021-06-27] MEDS: metFORMIN XR 500MG TAB PO SCH ×2 (09:02→17:41)
[2021-06-27] MEDS ORDERED: NON-FORMULARY EACH (Loratadine [Allergy Relief] 10 MG Tablet) PO SCH (10:00)
[2021-06-27] MEDS ORDERED: ATOMOXETINE HCL 40 MG PO SCH (10:00)
[2021-06-27] MEDS: LITHIUM CARBONATE 150 MG CAP PO SCH ×2 (10:35→22:36)
[2021-06-27] MEDS: TOPIRAMATE TAB 25 MG TAB PO SCH ×2 (10:35→22:33)
[2021-06-27] MEDS: QUEtiapine 25 MG TAB PO SCH ×2 (10:40→17:41)
[2021-06-27] MEDS: CETIRIZINE 10 MG TAB PO SCH (10:40)
[2021-06-27] MEDS: BENZTROPINE 1 MG TAB PO SCH ×2 (10:40→22:20)
[2021-06-27] MEDS: PROPRANOLOL 10 MG TAB PO SCH ×3 (10:41→22:37)
[2021-06-27] MEDS: cloNIDine 0.1 MG TAB PO SCH ×2 (10:44→22:21)
--- NOTE | 2021-06-27 11:08 | Event Note ---
Date: 06/27/21 Patient seen and examined. She is in no acute distress. No concerns articulated by nursing team. Vital signs reviewed and appreciated. Case gillian qiu input reviewed and appreciated. Patient remains medically suitable for discharge and disposition at this time. Vital Signs 06/09/21 06/10/21 06/10/21 23:34 00:38 07:45 Temperature 98.7 F 98.7 F 97.6 F Pulse Rate 70 70 67 Respiratory 18 18 Rate Blood Pressure 98/64 Blood Pressure 98/64 111/60 [Right] O2 Sat by Pulse 100 100 98 Oximetry 06/10/21 06/11/21 06/11/21 19:55 02:12 07:54 Temperature 98.6 F 98.6 F 99.2 F Pulse Rate 59 L 58 L 89 Respiratory 72 H 16 18 Rate Blood Pressure Blood Pressure 105/59 95/56 123/59 [Right] O2 Sat by Pulse 98 99 96 Oximetry 06/11/21 06/11/21 06/12/21 07:55 20:22 05:52 Temperature 98.8 F 98.7 F Pulse Rate 63 81 Respiratory 16 18 Rate Blood Pressure Blood Pressure 110/67 105/69 [Right] O2 Sat by Pulse 96 98 98 Oximetry 06/12/21 06/12/21 06/12/21 08:48 08:54 21:18 Temperature 97.8 F Pulse Rate 90 63 Respiratory 20 18 Rate Blood Pressure Blood Pressure 113/66 117/70 [Right] O2 Sat by Pulse 99 99 100 Oximetry 06/12/21 06/13/21 06/13/21 21:27 08:17 20:54 Temperature 98.9 F 98.6 F Pulse Rate 92 H Respiratory 18 Rate Blood Pressure Blood Pressure 123/84 [Right] O2 Sat by Pulse 98 97 Oximetry 06/13/21 06/14/21 06/14/21 20:56 08:18 20:48 Temperature 98.2 F 98.5 F Pulse Rate 77 91 H Respiratory 16 18 Rate Blood Pressure Blood Pressure 125/75 124/79 [Right] O2 Sat by Pulse 97 97 99 Oximetry 06/15/21 06/16/21 06/16/21 20:57 01:30 07:49 Temperature 98.3 F 97.3 F L 97.6 F Pulse Rate 70 70 80 Respiratory 16 18 18 Rate Blood Pressure Blood Pressure 109/66 109/75 111/62 [Right] O2 Sat by Pulse 98 98 97 Oximetry 06/16/21 06/16/21 06/17/21 08:38 22:28 06:47 Temperature 98.6 F 98.6 F Pulse Rate 98 H 99 H Respiratory 20 18 Rate Blood Pressure Blood Pressure 115/70 120/77 [Right] O2 Sat by Pulse 97 98 100 Oximetry 06/17/21 06/17/21 06/17/21 08:00 09:21 20:24 Temperature 97.8 F 99.0 F Pulse Rate 83 69 Respiratory 20 16 Rate Blood Pressure Blood Pressure 120/63 104/55 [Right] O2 Sat by Pulse 100 100 98 Oximetry 06/18/21 06/18/21 06/18/21 01:53 10:44 19:59 Temperature 98.5 F 97.8 F Pulse Rate 82 74 Respiratory 16 18 Rate Blood Pressure Blood Pressure 95/57 108/59 [Right] O2 Sat by Pulse 97 98 100 Oximetry 06/18/21 06/19/21 06/19/21 20:07 02:24 09:28 Temperature 98.7 F 98.8 F 97.9 F Pulse Rate 82 82 83 Respiratory 18 16 18 Rate Blood Pressure Blood Pressure 113/59 116/58 139/69 [Right] O2 Sat by Pulse 99 98 98 Oximetry 06/19/21 06/20/21 06/20/21 20:20 10:00 20:22 Temperature 98.3 F 98.9 F 97.8 F Pulse Rate 86 89 94 H Respiratory 18 18 18 Rate Blood Pressure Blood Pressure 118/52 116/73 124/55 [Right] O2 Sat by Pulse 98 97 97 Oximetry 06/21/21 06/21/21 06/21/21 08:15 09:41 20:05 Temperature 97.6 F 98.7 F Pulse Rate 82 81 Respiratory 18 16 Rate Blood Pressure Blood Pressure 145/76 111/68 [Right] O2 Sat by Pulse 100 100 97 Oximetry 06/22/21 06/22/21 06/23/21 01:50 20:25 02:23 Temperature 98.7 F 98.6 F 98.8 F Pulse Rate 80 89 83 Respiratory 18 18 16 Rate Blood Pressure Blood Pressure 109/68 125/63 99/60 [Right] O2 Sat by Pulse 98 96 96 Oximetry 06/23/21 06/23/21 06/23/21 08:05 08:19 20:53 Temperature 99 F 98.1 F Pulse Rate 82 90 Respiratory 18 18 Rate Blood Pressure Blood Pressure 120/70 125/66 [Right] O2 Sat by Pulse 96 100 96 Oximetry 06/24/21 06/24/21 06/25/21 12:09 12:26 02:46 Temperature 97.7 F 97.2 F L Pulse Rate 74 81 Respiratory 20 18 18 Rate Blood Pressure Blood Pressure 118/67 114/60 [Right] O2 Sat by Pulse 98 98 99 Oximetry 06/26/21 06/26/21 06/26/21 08:16 12:03 14:11 Temperature 98.0 F Pulse Rate 68 68 Respiratory 18 Rate Blood Pressure 127/79 Blood Pressure 127/79 [Right] O2 Sat by Pulse 100 100 Oximetry 06/26/21 06/26/21 06/26/21 20:15 22:31 22:32 Temperature 98.8 F Pulse Rate 86 86 86 Respiratory 18 Rate Blood Pressure 111/57 111/56 Blood Pressure 111/57 [Right] O2 Sat by Pulse 98 Oximetry 06/27/21 06/27/21 06/27/21 02:33 04:24 08:03 Temperature 98.9 F 98.0 F Pulse Rate 94 H 74 Respiratory 18 20 Rate Blood Pressure Blood Pressure 99/56 118/67 [Right] O2 Sat by Pulse 98 98 Oximetry
[2021-06-27] MEDS: ATOMOXETINE HCL 40 MG PO SCH (11:50)
[2021-06-27] MEDS: QUEtiapine 100 MG TAB PO SCH (22:21)
--- NOTE | 2021-06-28 10:43 | Event Note ---
Date: 06/28/21 S: No events reported overnight. Patient refused vitals this morning. O: Vitals refused A: Aggressive behavior cleared medically awaiting safe discharge P: Awaiting case management placement
[2021-06-28] MEDS: metFORMIN XR 500MG TAB PO SCH (14:29)
[2021-06-28] MEDS: LITHIUM CARBONATE 150 MG CAP PO SCH (14:29)
[2021-06-28] MEDS: QUEtiapine 100 MG TAB PO SCH (23:37)
[2021-06-28] MEDS: BENZTROPINE 1 MG TAB PO SCH (23:38)
[2021-06-29] MEDS: TOPIRAMATE TAB 25 MG TAB PO SCH ×3 (00:06→23:00)
[2021-06-29] MEDS: cloNIDine 0.1 MG TAB PO SCH ×3 (00:06→22:50)
[2021-06-29] MEDS: LITHIUM CARBONATE 150 MG CAP PO SCH ×3 (00:07→23:01)
[2021-06-29] MEDS: PROPRANOLOL 10 MG TAB PO SCH ×4 (00:08→23:00)
[2021-06-29] MEDS: metFORMIN XR 500MG TAB PO SCH ×2 (08:11→17:21)
[2021-06-29] MEDS: ATOMOXETINE HCL 40 MG PO SCH (09:42)
[2021-06-29] MEDS: BENZTROPINE 1 MG TAB PO SCH ×2 (10:37→22:59)
[2021-06-29] MEDS: CETIRIZINE 10 MG TAB PO SCH (10:37)
[2021-06-29] MEDS: QUEtiapine 25 MG TAB PO SCH ×2 (10:37→17:21)
--- NOTE | 2021-06-29 14:08 | Event Note ---
Date: 06/29/21 Patient calm and cooperative. No events overnight. Still awaiting placement by case management.
[2021-06-29] MEDS: QUEtiapine 100 MG TAB PO SCH (23:01)
[2021-06-30] MEDS: metFORMIN XR 500MG TAB PO SCH ×2 (07:48→17:37)
--- NOTE | 2021-06-30 10:28 | Emergency Department Report ---
Blank Doc - Documentation Documentation: Patient is resting this morning. She has required intermittent sedation. The m other refuses to come get her. The senior living refuses to take her back. We are seeking guardianship over this patient so that she can be placed. Case management is aware and will proceed with legal hearings for guardianship.
[2021-06-30] MEDS: BENZTROPINE 1 MG TAB PO SCH ×2 (10:36→23:51)
[2021-06-30] MEDS: CETIRIZINE 10 MG TAB PO SCH (10:36)
[2021-06-30] MEDS: QUEtiapine 25 MG TAB PO SCH ×2 (10:36→17:37)
[2021-06-30] MEDS: TOPIRAMATE TAB 25 MG TAB PO SCH ×2 (10:36→23:51)
[2021-06-30] MEDS: LITHIUM CARBONATE 150 MG CAP PO SCH ×2 (10:37→23:52)
[2021-06-30] MEDS: cloNIDine 0.1 MG TAB PO SCH ×2 (10:38→23:51)
[2021-06-30] MEDS: PROPRANOLOL 10 MG TAB PO SCH ×3 (11:26→23:51)
--- NOTE | 2021-06-30 17:48 | XRay Report ---
CHEST 2 VIEWS INDICATION: placement. COMPARISON: None FINDINGS: SUPPORT DEVICES: None. HEART: Within normal limits. LUNGS/PLEURA: No acute air space or interstitial disease. No pneumothorax. ADDITIONAL FINDINGS: None. IMPRESSION: 1. No acute findings. Signer Name: Micha Jensen MD Signed: 06/30/2021 5:43 PM Workstation Name: [id number]
[2021-06-30] MEDS: QUEtiapine 100 MG TAB PO SCH (23:52)
[2021-07-01] MEDS: PROPRANOLOL 10 MG TAB PO SCH ×2 (10:02→22:00)
[2021-07-01] MEDS: metFORMIN XR 500MG TAB PO SCH (10:06)
[2021-07-01] MEDS: QUEtiapine 25 MG TAB PO SCH (10:06)
[2021-07-01] MEDS: CETIRIZINE 10 MG TAB PO SCH (10:06)
[2021-07-01] MEDS: cloNIDine 0.1 MG TAB PO SCH ×2 (10:06→22:00)
[2021-07-01] MEDS: TOPIRAMATE TAB 25 MG TAB PO SCH ×2 (10:07→22:00)
[2021-07-01] MEDS: LITHIUM CARBONATE 150 MG CAP PO SCH ×2 (10:07→22:00)
[2021-07-01] MEDS: BENZTROPINE 1 MG TAB PO SCH ×2 (10:07→22:00)
[2021-07-01] MEDS: QUEtiapine 100 MG TAB PO SCH (22:00)
[2021-07-02] MEDS: QUEtiapine 25 MG TAB PO SCH (10:07)
[2021-07-02] MEDS: CETIRIZINE 10 MG TAB PO SCH (10:07)
[2021-07-02] MEDS: BENZTROPINE 1 MG TAB PO SCH ×2 (10:07→22:45)
--- NOTE | 2021-07-02 10:35 | Event Note ---
Date: 07/02/21 Patient seen and examined. Resting comfortably in stretcher. No acute distress. Nursing team endorses no concerns. Patient remains medically s uitable for social disposition at this time. Home meds have been continued. Appreciate case management's input on this patient's case.
[2021-07-02] MEDS: TOPIRAMATE TAB 25 MG TAB PO SCH ×2 (15:29→22:40)
[2021-07-02] MEDS: metFORMIN XR 500MG TAB PO SCH (15:29)
[2021-07-02] MEDS: PROPRANOLOL 10 MG TAB PO SCH ×2 (15:30→22:12)
[2021-07-02] MEDS: QUEtiapine 100 MG TAB PO SCH (22:11)
[2021-07-02] MEDS: cloNIDine 0.1 MG TAB PO SCH (22:11)
[2021-07-02] MEDS: LITHIUM CARBONATE 150 MG CAP PO SCH (22:30)
[2021-07-03] MEDS: CETIRIZINE 10 MG TAB PO SCH (12:10)
[2021-07-03] MEDS: BENZTROPINE 1 MG TAB PO SCH ×2 (12:10→22:23)
[2021-07-03] MEDS: QUEtiapine 25 MG TAB PO SCH (12:11)
--- NOTE | 2021-07-03 14:04 | Event Note ---
No acute issues. Patient is medically clear for discharge disposition as determined by case management.
[2021-07-03] MEDS: PROPRANOLOL 10 MG TAB PO SCH ×2 (16:00→22:23)
[2021-07-03] MEDS: metFORMIN XR 500MG TAB PO SCH (16:00)
[2021-07-03] MEDS: TOPIRAMATE TAB 25 MG TAB PO SCH ×2 (16:00→22:23)
[2021-07-03] MEDS: LITHIUM CARBONATE 150 MG CAP PO SCH ×2 (16:01→22:23)
[2021-07-03] MEDS: cloNIDine 0.1 MG TAB PO SCH (22:23)
[2021-07-03] MEDS: QUEtiapine 100 MG TAB PO SCH (22:23)
[2021-07-04] MEDS: CETIRIZINE 10 MG TAB PO SCH (12:12)
[2021-07-04] MEDS: BENZTROPINE 1 MG TAB PO SCH ×2 (12:14→22:24)
[2021-07-04] MEDS: TOPIRAMATE TAB 25 MG TAB PO SCH ×2 (12:15→22:25)
[2021-07-04] MEDS: LITHIUM CARBONATE 150 MG CAP PO SCH ×2 (12:16→22:25)
[2021-07-04] MEDS: metFORMIN XR 500MG TAB PO SCH (12:16)
[2021-07-04] MEDS: PROPRANOLOL 10 MG TAB PO SCH ×2 (12:17→22:25)
[2021-07-04] MEDS: QUEtiapine 25 MG TAB PO SCH (12:19)
[2021-07-04] MEDS: cloNIDine 0.1 MG TAB PO SCH ×2 (12:32→22:23)
--- NOTE | 2021-07-04 13:38 | Event Note ---
Patient is pleasant and comfortable. She is directable she is eating. No acute needs.
[2021-07-04] MEDS: QUEtiapine 100 MG TAB PO SCH (22:25)
[2021-07-05] MEDS: metFORMIN XR 500MG TAB PO SCH ×2 (07:47→17:15)
[2021-07-05] MEDS: cloNIDine 0.1 MG TAB PO SCH ×2 (09:40→22:25)
[2021-07-05] MEDS: LITHIUM CARBONATE 150 MG CAP PO SCH ×2 (09:40→22:25)
[2021-07-05] MEDS: PROPRANOLOL 10 MG TAB PO SCH ×3 (09:40→22:25)
[2021-07-05] MEDS: QUEtiapine 25 MG TAB PO SCH ×2 (09:40→17:15)
[2021-07-05] MEDS: CETIRIZINE 10 MG TAB PO SCH (09:41)
[2021-07-05] MEDS: BENZTROPINE 1 MG TAB PO SCH ×2 (09:41→22:10)
[2021-07-05] MEDS: TOPIRAMATE TAB 25 MG TAB PO SCH ×2 (09:41→22:26)
--- NOTE | 2021-07-05 13:03 | Event Note ---
Date: 07/05/21 No issues overnight. Patient still awaiting placement.
[2021-07-05] MEDS: QUEtiapine 100 MG TAB PO SCH (22:09)
[2021-07-06] MEDS: cloNIDine 0.1 MG TAB PO SCH ×4 (13:19→22:40)
[2021-07-06] MEDS: QUEtiapine 25 MG TAB PO SCH (13:20)
[2021-07-06] MEDS: PROPRANOLOL 10 MG TAB PO SCH ×4 (13:20→22:38)
[2021-07-06] MEDS: BENZTROPINE 1 MG TAB PO SCH ×2 (13:21→22:37)
[2021-07-06] MEDS: metFORMIN XR 500MG TAB PO SCH (13:21)
[2021-07-06] MEDS: TOPIRAMATE TAB 25 MG TAB PO SCH (13:21)
[2021-07-06] MEDS: CETIRIZINE 10 MG TAB PO SCH (13:21)
[2021-07-06] MEDS: LITHIUM CARBONATE 150 MG CAP PO SCH (13:22)
[2021-07-06] MEDS: QUEtiapine 100 MG TAB PO SCH (22:37)
[2021-07-07] MEDS: LITHIUM CARBONATE 150 MG CAP PO SCH ×3 (01:41→23:26)
[2021-07-07] MEDS: TOPIRAMATE TAB 25 MG TAB PO SCH ×3 (01:41→23:27)
[2021-07-07] MEDS: metFORMIN XR 500MG TAB PO SCH ×2 (07:59→17:18)
[2021-07-07] MEDS: QUEtiapine 25 MG TAB PO SCH ×2 (10:16→17:18)
[2021-07-07] MEDS: PROPRANOLOL 10 MG TAB PO SCH ×3 (10:16→22:21)
[2021-07-07] MEDS: CETIRIZINE 10 MG TAB PO SCH (10:17)
[2021-07-07] MEDS: BENZTROPINE 1 MG TAB PO SCH ×2 (10:17→22:21)
[2021-07-07] MEDS: cloNIDine 0.1 MG TAB PO SCH ×2 (10:17→23:27)
--- NOTE | 2021-07-07 18:07 | Event Note ---
Date: 07/07/21 Patient stable. No overnight events. Awaiting case management placement.
[2021-07-07] MEDS: QUEtiapine 100 MG TAB PO SCH (22:21)
--- NOTE | 2021-07-08 11:49 | Event Note ---
Date: 07/08/21 Patient stable with no new complaints. Resting comfortably eating lunch. No issues overnight. Still waiting for placement.
[2021-07-08] MEDS: metFORMIN XR 500MG TAB PO SCH ×2 (17:34→22:59)
[2021-07-08] MEDS: LITHIUM CARBONATE 150 MG CAP PO SCH ×2 (17:35→22:59)
[2021-07-08] MEDS: QUEtiapine 25 MG TAB PO SCH ×2 (17:35→17:39)
[2021-07-08] MEDS: BENZTROPINE 1 MG TAB PO SCH ×2 (17:35→22:59)
[2021-07-08] MEDS: CETIRIZINE 10 MG TAB PO SCH (17:35)
[2021-07-08] MEDS: PROPRANOLOL 10 MG TAB PO SCH ×3 (17:37→23:02)
[2021-07-08] MEDS: TOPIRAMATE TAB 25 MG TAB PO SCH ×2 (17:37→23:02)
[2021-07-08] MEDS: DOCUSATE SODIUM 100 MG CAP PO SCH ×2 (17:38→22:59)
[2021-07-08] MEDS: QUEtiapine 100 MG TAB PO SCH (22:59)
[2021-07-09] MEDS: DOCUSATE SODIUM 100 MG CAP PO SCH (07:47)
[2021-07-09] MEDS: metFORMIN XR 500MG TAB PO SCH (07:47)
[2021-07-09] MEDS: CETIRIZINE 10 MG TAB PO SCH (10:55)
[2021-07-09] MEDS: BENZTROPINE 1 MG TAB PO SCH ×2 (10:55→22:49)
[2021-07-09] MEDS: QUEtiapine 25 MG TAB PO SCH (10:55)
[2021-07-09] MEDS: cloNIDine 0.1 MG TAB PO SCH ×3 (10:55→22:51)
[2021-07-09] MEDS: LITHIUM CARBONATE 150 MG CAP PO SCH ×2 (10:56→22:48)
[2021-07-09] MEDS: TOPIRAMATE TAB 25 MG TAB PO SCH ×2 (10:56→22:48)
[2021-07-09] MEDS: PROPRANOLOL 10 MG TAB PO SCH (10:56)
--- NOTE | 2021-07-09 12:16 | Event Note ---
Date: 07/09/21 No events overnight. Patient eating lunch.
[2021-07-09] MEDS: QUEtiapine 100 MG TAB PO SCH (22:49)
[2021-07-10] MEDS: DOCUSATE SODIUM 100 MG CAP PO SCH ×3 (08:58→21:09)
[2021-07-10] MEDS: metFORMIN XR 500MG TAB PO SCH ×2 (08:58→18:02)
[2021-07-10] MEDS: QUEtiapine 25 MG TAB PO SCH ×2 (10:32→18:01)
[2021-07-10] MEDS: PROPRANOLOL 10 MG TAB PO SCH ×3 (10:33→21:41)
[2021-07-10] MEDS: TOPIRAMATE TAB 25 MG TAB PO SCH ×2 (10:33→21:43)
[2021-07-10] MEDS: LITHIUM CARBONATE 150 MG CAP PO SCH ×2 (10:33→21:42)
[2021-07-10] MEDS: CETIRIZINE 10 MG TAB PO SCH (10:33)
[2021-07-10] MEDS: BENZTROPINE 1 MG TAB PO SCH ×2 (10:33→21:41)
[2021-07-10] MEDS: QUEtiapine 100 MG TAB PO SCH (21:40)
[2021-07-11] MEDS: metFORMIN XR 500MG TAB PO SCH ×3 (08:39→19:53)
[2021-07-11] MEDS: DOCUSATE SODIUM 100 MG CAP PO SCH ×4 (08:39→21:52)
[2021-07-11] MEDS: CETIRIZINE 10 MG TAB PO SCH (10:49)
[2021-07-11] MEDS: QUEtiapine 25 MG TAB PO SCH ×3 (10:49→17:09)
[2021-07-11] MEDS: BENZTROPINE 1 MG TAB PO SCH ×2 (10:49→21:53)
[2021-07-11] MEDS: TOPIRAMATE TAB 25 MG TAB PO SCH ×2 (10:49→21:54)
[2021-07-11] MEDS: LITHIUM CARBONATE 150 MG CAP PO SCH ×2 (10:49→21:54)
[2021-07-11] MEDS: PROPRANOLOL 10 MG TAB PO SCH ×3 (10:50→21:52)
[2021-07-11] MEDS: cloNIDine 0.1 MG TAB PO SCH ×5 (10:51→21:56)
--- NOTE | 2021-07-11 11:16 | Emergency Department Report ---
Blank Doc - Documentation Documentation: Patient is currently resting. She is still hoping to be sent to a home soon. She is in no distress and has no complaint.
[2021-07-11] MEDS: QUEtiapine 100 MG TAB PO SCH (21:54)
[2021-07-12] MEDS: CETIRIZINE 10 MG TAB PO SCH (11:30)
[2021-07-12] MEDS: QUEtiapine 25 MG TAB PO SCH (11:31)
[2021-07-12] MEDS: BENZTROPINE 1 MG TAB PO SCH ×2 (11:31→22:28)
[2021-07-12] MEDS: TOPIRAMATE TAB 25 MG TAB PO SCH ×2 (11:40→22:28)
[2021-07-12] MEDS: metFORMIN XR 500MG TAB PO SCH (11:41)
[2021-07-12] MEDS: PROPRANOLOL 10 MG TAB PO SCH ×3 (11:41→22:30)
[2021-07-12] MEDS: DOCUSATE SODIUM 100 MG CAP PO SCH ×3 (11:42→22:31)
[2021-07-12] MEDS: cloNIDine 0.1 MG TAB PO SCH (11:42)
[2021-07-12] MEDS: LITHIUM CARBONATE 150 MG CAP PO SCH ×2 (11:43→22:27)
[2021-07-12] MEDS: QUEtiapine 100 MG TAB PO SCH (22:28)
[2021-07-13] MEDS: cloNIDine 0.1 MG TAB PO SCH ×2 (00:53→22:14)
[2021-07-13] MEDS: CETIRIZINE 10 MG TAB PO SCH (10:00)
[2021-07-13] MEDS: QUEtiapine 25 MG TAB PO SCH ×2 (10:04→10:05)
--- NOTE | 2021-07-13 11:51 | Event Note ---
Date: 07/13/21 No events reported overnight Vital Signs - 8 hr 07/13/21 07:43 Temperature 98 F Pulse Rate 102 H Respiratory 16 Rate Blood Pressure 123/72 [Right] O2 Sat by Pulse 98 Oximetry Awaiting placement by case management
[2021-07-13] MEDS: DOCUSATE SODIUM 100 MG CAP PO SCH (22:10)
[2021-07-13] MEDS: LITHIUM CARBONATE 150 MG CAP PO SCH (22:11)
[2021-07-13] MEDS: QUEtiapine 100 MG TAB PO SCH (22:11)
[2021-07-13] MEDS: BENZTROPINE 1 MG TAB PO SCH (22:11)
[2021-07-13] MEDS: PROPRANOLOL 10 MG TAB PO SCH (22:11)
[2021-07-13] MEDS: TOPIRAMATE TAB 25 MG TAB PO SCH (22:14)
[2021-07-14] MEDS: metFORMIN XR 500MG TAB PO SCH ×2 (10:44→18:00)
[2021-07-14] MEDS: DOCUSATE SODIUM 100 MG CAP PO SCH ×2 (10:45→23:45)
[2021-07-14] MEDS: BENZTROPINE 1 MG TAB PO SCH ×2 (10:46→23:46)
[2021-07-14] MEDS: CETIRIZINE 10 MG TAB PO SCH (10:47)
[2021-07-14] MEDS: QUEtiapine 25 MG TAB PO SCH ×2 (10:47→18:00)
[2021-07-14] MEDS: cloNIDine 0.1 MG TAB PO SCH ×2 (10:47→23:45)
[2021-07-14] MEDS: PROPRANOLOL 10 MG TAB PO SCH ×2 (10:48→23:44)
[2021-07-14] MEDS: TOPIRAMATE TAB 25 MG TAB PO SCH ×2 (10:48→23:46)
[2021-07-14] MEDS: LITHIUM CARBONATE 150 MG CAP PO SCH ×2 (10:48→23:46)
--- NOTE | 2021-07-14 19:44 | Event Note ---
Date: 07/14/21 No overnight events. Patient is calm and cooperative. Still awaiting case management placement.
[2021-07-14] MEDS: QUEtiapine 100 MG TAB PO SCH (23:47)
[2021-07-15] MEDS: DOCUSATE SODIUM 100 MG CAP PO SCH ×3 (10:13→22:36)
[2021-07-15] MEDS: metFORMIN XR 500MG TAB PO SCH ×2 (10:14→18:57)
[2021-07-15] MEDS: BENZTROPINE 1 MG TAB PO SCH ×2 (10:14→22:36)
[2021-07-15] MEDS: LITHIUM CARBONATE 150 MG CAP PO SCH ×2 (10:14→22:36)
[2021-07-15] MEDS: TOPIRAMATE TAB 25 MG TAB PO SCH ×2 (10:15→22:36)
[2021-07-15] MEDS: CETIRIZINE 10 MG TAB PO SCH (10:15)
[2021-07-15] MEDS: QUEtiapine 25 MG TAB PO SCH (10:15)
[2021-07-15] MEDS: cloNIDine 0.1 MG TAB PO SCH ×2 (10:19→22:36)
[2021-07-15] MEDS: PROPRANOLOL 10 MG TAB PO SCH ×3 (10:20→22:35)
--- NOTE | 2021-07-15 19:52 | Event Note ---
Date: 07/15/21 No significant events overnight. There is a facility that is looking to accept the patient. They are requesting new medical clearance. Ordered new set of labs. Lab Results 06/09/21 06/09/21 06/09/21 Range/Units 23:52 23:52 23:52 WBC 8.0 (4.5-11.0) K/mm3 RBC 4.22 (3.65-5.03) M/mm3 Hgb 12.9 (10.1-14.3) gm/dl Hct 37.2 (30.3-42.9) % MCV 88 (79-97) fl MCH 31 (28-32) pg MCHC 35 H (30-34) % RDW 12.8 L (13.2-15.2) % Plt Count 318 (140-440) K/mm3 Lymph % (Auto) (13.4-35.0) % [place] % (Auto) [employer] Eos % (Auto) (0.0-4.3) % Baso % (Auto) (0.0-1.8) % Lymph # (Auto) (1.2-5.4) K/mm3 [place] # (Auto) (0.0-0.8) K/mm3 Eos # (Auto) (0.0-0.4) K/mm3 Baso # (Auto) (0.0-0.1) K/mm3 Add Manual Diff Complete Total Counted 100 Seg Neutrophils % (40.0-70.0) % Seg Neuts % (Manual) 65.0 (40.0-70.0) % Lymphocytes % (Manual) 32.0 (13.4-35.0) % Monocytes % (Manual) 3.0 (0.0-7.3) % Nucleated RBC % Not Reportable Seg Neutrophils # (1.8-7.7) K/mm3 Seg Neutrophils # Man 5.2 (1.8-7.7) K/mm3 Band Neutrophils # 0.0 K/mm3 Lymphocytes # (Manual) 2.6 (1.2-5.4) K/mm3 Abs React Lymphs (Man) 0.0 K/mm3 Monocytes # (Manual) 0.2 (0.0-0.8) K/mm3 Eosinophils # (Manual) 0.0 (0.0-0.4) K/mm3 Basophils # (Manual) 0.0 (0.0-0.1) K/mm3 Metamyelocytes # 0.0 K/mm3 Myelocytes # 0.0 K/mm3 Promyelocytes # 0.0 K/mm3 Blast Cells # 0.0 K/mm3 WBC Morphology Not Reportable Hypersegmented Neuts Not Reportable Hyposegmented Neuts Not Reportable Hypogranular Neuts Not Reportable Smudge Cells Not Reportable Toxic Granulation Not Reportable Toxic Vacuolation Not Reportable Dohle Bodies Not Reportable Pelger-Huet Anomaly Not Reportable Deanna Rods Not Reportable Platelet Estimate Consistent w auto Clumped Platelets Not Reportable Plt Clumps, EDTA Not Reportable Large Platelets Not Reportable Giant Platelets Not Reportable Platelet Satelliting Not Reportable Plt Morphology Comment Not Reportable RBC Morphology Normal Dimorphic RBCs Not Reportable Polychromasia Not Reportable Hypochromasia Not Reportable Poikilocytosis Not Reportable Anisocytosis Not Reportable Microcytosis Not Reportable Macrocytosis Not Reportable Spherocytes Not Reportable Pappenheimer Bodies Not Reportable Sickle Cells Not Reportable Target Cells Not Reportable Tear Drop Cells Not Reportable Ovalocytes Not Reportable Helmet Cells Not Reportable Mraie-Macomb Bodies Not Reportable Ama Rings Not Reportable Unity Cells Not Reportable Bite Cells Not Reportable Crenated Cell Not Reportable Elliptocytes Not Reportable Acanthocytes (Spur) Not Reportable Rouleaux Not Reportable Hemoglobin C Crystals Not Reportable Schistocytes Not Reportable Malaria parasites Not Reportable Robb Bodies Not Reportable Hem Pathologist Commnt No Sodium 138 (137-145) mmol/L Potassium 3.4 L (3.6-5.0) mmol/L Chloride 100.7 (98-107) mmol/L Carbon Dioxide 22 (22-30) mmol/L Anion Gap 19 mmol/L BUN 7 (7-17) mg/dL Creatinine 0.5 L (0.6-1.2) mg/dL Estimated GFR > 60 ml/min BUN/Creatinine Ratio 14 % Glucose 96 (65-100) mg/dL Calcium 9.8 (8.4-10.2) mg/dL Total Bilirubin 0.20 (0.1-1.2) mg/dL AST 14 (5-40) units/L ALT 15 (7-56) units/L Alkaline Phosphatase 79 (35-129) units/L Total Protein 7.1 (6.3-8.2) g/dL Albumin 4.3 (3.9-5) g/dL Albumin/Globulin Ratio 1.5 % HCG, Qual (Negative) Salicylates < 0.3 L (2.8-20.0) mg/dL Acetaminophen (10.0-30.0) ug/mL Plasma/Serum Alcohol (0-0.07) % Coronavirus (PCR) (Negative) 06/09/21 06/09/21 06/09/21 Range/Units 23:52 23:52 23:52 WBC (4.5-11.0) K/mm3 RBC (3.65-5.03) M/mm3 Hgb (10.1-14.3) gm/dl Hct (30.3-42.9) % MCV (79-97) fl MCH (28-32) pg MCHC (30-34) % RDW (13.2-15.2) % Plt Count (140-440) K/mm3 Lymph % (Auto) (13.4-35.0) % [place] % (Auto) Eos % (Auto) (0.0-4.3) % Baso % (Auto) (0.0-1.8) % Lymph # (Auto) (1.2-5.4) K/mm3 [place] # (Auto) (0.0-0.8) K/mm3 Eos # (Auto) (0.0-0.4) K/mm3 Baso # (Auto) (0.0-0.1) K/mm3 Add Manual Diff Total Counted Seg Neutrophils % (40.0-70.0) % Seg Neuts % (Manual) (40.0-70.0) % Lymphocytes % (Manual) (13.4-35.0) % Monocytes % (Manual) (0.0-7.3) % Nucleated RBC % Seg Neutrophils # (1.8-7.7) K/mm3 Seg Neutrophils # Man (1.8-7.7) K/mm3 Band Neutrophils # K/mm3 Lymphocytes # (Manual) (1.2-5.4) K/mm3 Abs React Lymphs (Man) K/mm3 Monocytes # (Manual) (0.0-0.8) K/mm3 Eosinophils # (Manual) (0.0-0.4) K/mm3 Basophils # (Manual) (0.0-0.1) K/mm3 Metamyelocytes # K/mm3 Myelocytes # K/mm3 Promyelocytes # K/mm3 Blast Cells # K/mm3 WBC Morphology Hypersegmented Neuts Hyposegmented Neuts Hypogranular Neuts Smudge Cells Toxic Granulation Toxic Vacuolation Dohle Bodies Pelger-Huet Anomaly Deanna Rods Platelet Estimate Clumped Platelets Plt Clumps, EDTA Large Platelets Giant Platelets Platelet Satelliting Plt Morphology Comment RBC Morphology Dimorphic RBCs Polychromasia Hypochromasia Poikilocytosis Anisocytosis Microcytosis Macrocytosis Spherocytes Pappenheimer Bodies Sickle Cells Target Cells Tear Drop Cells Ovalocytes Helmet Cells Marie-Macomb Bodies Ama Rings Unity Cells Bite Cells Crenated Cell Elliptocytes Acanthocytes (Spur) Rouleaux Hemoglobin C Crystals Schistocytes Malaria parasites Robb Bodies Hem Pathologist Commnt Sodium (137-145) mmol/L Potassium (3.6-5.0) mmol/L Chloride (98-107) mmol/L Carbon Dioxide (22-30) mmol/L Anion Gap mmol/L BUN (7-17) mg/dL Creatinine (0.6-1.2) mg/dL Estimated GFR ml/min BUN/Creatinine Ratio % Glucose (65-100) mg/dL Calcium (8.4-10.2) mg/dL Total Bilirubin (0.1-1.2) mg/dL AST (5-40) units/L ALT (7-56) units/L Alkaline Phosphatase (35-129) units/L Total Protein (6.3-8.2) g/dL Albumin (3.9-5) g/dL Albumin/Globulin Ratio % HCG, Qual Negative (Negative) Salicylates (2.8-20.0) mg/dL Acetaminophen 5.0 L (10.0-30.0) ug/mL Plasma/Serum Alcohol < 0.01 (0-0.07) % Coronavirus (PCR) (Negative) 06/10/21 06/24/21 07/15/21 Range/Units Unknown 08:23 19:59 WBC 8.4 (4.5-11.0) K/mm3 RBC 4.55 (3.65-5.03) M/mm3 Hgb 13.2 (10.1-14.3) gm/dl Hct 40.5 (30.3-42.9) % MCV 89 (79-97) fl MCH 29 (28-32) pg MCHC 33 (30-34) % RDW 13.1 L (13.2-15.2) % Plt Count 319 (140-440) K/mm3 Lymph % (Auto) 33.0 (13.4-35.0) % [place] % (Auto) 10.2 H Eos % (Auto) 0.1 (0.0-4.3) % Baso % (Auto) 0.5 (0.0-1.8) % Lymph # (Auto) 2.8 (1.2-5.4) K/mm3 [place] # (Auto) 0.9 H (0.0-0.8) K/mm3 Eos # (Auto) 0.0 (0.0-0.4) K/mm3 Baso # (Auto) 0.0 (0.0-0.1) K/mm3 Add Manual Diff Total Counted Seg Neutrophils % 56.2 (40.0-70.0) % Seg Neuts % (Manual) (40.0-70.0) % Lymphocytes % (Manual) (13.4-35.0) % Monocytes % (Manual) (0.0-7.3) % Nucleated RBC % Seg Neutrophils # 4.7 (1.8-7.7) K/mm3 Seg Neutrophils # Man (1.8-7.7) K/mm3 Band Neutrophils # K/mm3 Lymphocytes # (Manual) (1.2-5.4) K/mm3 Abs React Lymphs (Man) K/mm3 Monocytes # (Manual) (0.0-0.8) K/mm3 Eosinophils # (Manual) (0.0-0.4) K/mm3 Basophils # (Manual) (0.0-0.1) K/mm3 Metamyelocytes # K/mm3 Myelocytes # K/mm3 Promyelocytes # K/mm3 Blast Cells # K/mm3 WBC Morphology Hypersegmented Neuts Hyposegmented Neuts Hypogranular Neuts Smudge Cells Toxic Granulation Toxic Vacuolation Dohle Bodies Pelger-Huet Anomaly Deanna Rods Platelet Estimate Clumped Platelets Plt Clumps, EDTA Large Platelets Giant Platelets Platelet Satelliting Plt Morphology Comment RBC Morphology Dimorphic RBCs Polychromasia Hypochromasia Poikilocytosis Anisocytosis Microcytosis Macrocytosis Spherocytes Pappenheimer Bodies Sickle Cells Target Cells Tear Drop Cells Ovalocytes Helmet Cells Marie-Macomb Bodies Ama Rings Unity Cells Bite Cells Crenated Cell Elliptocytes Acanthocytes (Spur) Rouleaux Hemoglobin C Crystals Schistocytes Malaria parasites Robb Bodies Hem Pathologist Commnt Sodium (137-145) mmol/L Potassium (3.6-5.0) mmol/L Chloride (98-107) mmol/L Carbon Dioxide (22-30) mmol/L Anion Gap mmol/L BUN (7-17) mg/dL Creatinine (0.6-1.2) mg/dL Estimated GFR ml/min BUN/Creatinine Ratio % Glucose (65-100) mg/dL Calcium (8.4-10.2) mg/dL Total Bilirubin (0.1-1.2) mg/dL AST (5-40) units/L ALT (7-56) units/L Alkaline Phosphatase (35-129) units/L Total Protein (6.3-8.2) g/dL Albumin (3.9-5) g/dL Albumin/Globulin Ratio % HCG, Qual (Negative) Salicylates (2.8-20.0) mg/dL Acetaminophen (10.0-30.0) ug/mL Plasma/Serum Alcohol (0-0.07) % Coronavirus (PCR) Negative Negative (Negative) 07/15/21 07/15/21 Range/Units 19:59 19:59 WBC (4.5-11.0) K/mm3 RBC (3.65-5.03) M/mm3 Hgb (10.1-14.3) gm/dl Hct (30.3-42.9) % MCV (79-97) fl MCH (28-32) pg MCHC (30-34) % RDW (13.2-15.2) % Plt Count (140-440) K/mm3 Lymph % (Auto) (13.4-35.0) % [place] % (Auto) Eos % (Auto) (0.0-4.3) % Baso % (Auto) (0.0-1.8) % Lymph # (Auto) (1.2-5.4) K/mm3 [place] # (Auto) (0.0-0.8) K/mm3 Eos # (Auto) (0.0-0.4) K/mm3 Baso # (Auto) (0.0-0.1) K/mm3 Add Manual Diff Total Counted Seg Neutrophils % (40.0-70.0) % Seg Neuts % (Manual) (40.0-70.0) % Lymphocytes % (Manual) (13.4-35.0) % Monocytes % (Manual) (0.0-7.3) % Nucleated RBC % Seg Neutrophils # (1.8-7.7) K/mm3 Seg Neutrophils # Man (1.8-7.7) K/mm3 Band Neutrophils # K/mm3 Lymphocytes # (Manual) (1.2-5.4) K/mm3 Abs React Lymphs (Man) K/mm3 Monocytes # (Manual) (0.0-0.8) K/mm3 Eosinophils # (Manual) (0.0-0.4) K/mm3 Basophils # (Manual) (0.0-0.1) K/mm3 Metamyelocytes # K/mm3 Myelocytes # K/mm3 Promyelocytes # K/mm3 Blast Cells # K/mm3 WBC Morphology Hypersegmented Neuts Hyposegmented Neuts Hypogranular Neuts Smudge Cells Toxic Granulation Toxic Vacuolation Dohle Bodies Pelger-Huet Anomaly Deanna Rods Platelet Estimate Clumped Platelets Plt Clumps, EDTA Large Platelets Giant Platelets Platelet Satelliting Plt Morphology Comment RBC Morphology Dimorphic RBCs Polychromasia Hypochromasia Poikilocytosis Anisocytosis Microcytosis Macrocytosis Spherocytes Pappenheimer Bodies Sickle Cells Target Cells Tear Drop Cells Ovalocytes Helmet Cells Marie-Macomb Bodies Ama Rings Unity Cells Bite Cells Crenated Cell Elliptocytes Acanthocytes (Spur) Rouleaux Hemoglobin C Crystals Schistocytes Malaria parasites Robb Bodies Hem Pathologist Commnt Sodium 140 (137-145) mmol/L Potassium 3.8 (3.6-5.0) mmol/L Chloride 109.1 H (98-107) mmol/L Carbon Dioxide 18 L (22-30) mmol/L Anion Gap 17 mmol/L BUN 13 (7-17) mg/dL Creatinine 0.8 (0.6-1.2) mg/dL Estimated GFR > 60 ml/min BUN/Creatinine Ratio 16 % Glucose 93 (65-100) mg/dL Calcium 9.1 (8.4-10.2) mg/dL Total Bilirubin (0.1-1.2) mg/dL AST (5-40) units/L ALT (7-56) units/L Alkaline Phosphatase (35-129) units/L Total Protein (6.3-8.2) g/dL Albumin (3.9-5) g/dL Albumin/Globulin Ratio % HCG, Qual (Negative) Salicylates (2.8-20.0) mg/dL Acetaminophen (10.0-30.0) ug/mL Plasma/Serum Alcohol < 0.01 (0-0.07) % Coronavirus (PCR) (Negative) Patient is still medically cleared.
[2021-07-15 20:14] LABS: Basophils % (Auto) 0.5 % (0.0-1.8); Eosinophils % (Auto) 0.1 % (0.0-4.3); Hematocrit 40.5 % (30.3-42.9); Hemoglobin 13.2 gm/dl (10.1-14.3); Lymphocytes # (Auto) 2.8 K/mm3 (1.2-5.4); Mean Corpuscular HGB Conc 33 % (30-34); Mean Corpuscular Volume 89 fl (79-97); Monocytes # (Auto) 0.9 K/mm3 (0.0-0.8); Monocytes % (Auto) 10.2 % (0.0-7.3); Platelet Count 319 K/mm3 (140-440); Red Blood Count 4.55 M/mm3 (3.65-5.03); Red Cell Distribution Width 13.1 % (13.2-15.2)
[2021-07-15 20:29] LABS: BUN/Creatinine Ratio 16; Blood Urea Nitrogen 13 mg/dL (7-17); Calcium 9.1 mg/dL (8.4-10.2); Hemolysis Index 11
[2021-07-15] MEDS: QUEtiapine 100 MG TAB PO SCH (22:37)
--- NOTE | 2021-07-16 11:05 | Emergency Department Report ---
Blank Doc - Documentation Documentation: This patient has been here for 877 hours and continues to be a case management issue. She has been seen each day by case management and their last note says that they are getting the DD team involved for evaluation and placement. Patient had some repeat labs done yesterday that are mostly unremarkable. Vital signs reassuring including being afebrile. We will continue to monitor the patient during her ED course.
[2021-07-16] MEDS: DOCUSATE SODIUM 100 MG CAP PO SCH (22:29)
[2021-07-16] MEDS: PROPRANOLOL 10 MG TAB PO SCH (22:29)
[2021-07-16] MEDS: BENZTROPINE 1 MG TAB PO SCH (22:30)
[2021-07-16] MEDS: LITHIUM CARBONATE 150 MG CAP PO SCH (22:30)
[2021-07-16] MEDS: QUEtiapine 100 MG TAB PO SCH (22:30)
[2021-07-16] MEDS: TOPIRAMATE TAB 25 MG TAB PO SCH (22:30)
[2021-07-16] MEDS: cloNIDine 0.1 MG TAB PO SCH (22:35)
[2021-07-17] MEDS ORDERED: ACETAMINOPHEN 500 MG TAB PO ONE (10:23)
--- NOTE | 2021-07-17 10:24 | XRay Report ---
CHEST 2 VIEWS INDICATION: Medical clearance rule out TB. COMPARISON: 06/30/2021 FINDINGS: SUPPORT DEVICES: None. HEART: Within normal limits. LUNGS/PLEURA: No acute air space or interstitial disease. No evidence of active TB. ADDITIONAL FINDINGS: None. IMPRESSION: 1. No acute findings. Signer Name: Micha Jensen MD Signed: 07/17/2021 10:20 AM Workstation Name: [id number]
[2021-07-17] MEDS: QUEtiapine 25 MG TAB PO SCH (10:31)
[2021-07-17] MEDS: QUEtiapine 100 MG TAB PO SCH ×2 (21:27→21:54)
--- NOTE | 2021-07-18 06:20 | Event Note ---
Chest radiograph negative. No infiltrate. No indication of tuberculosis. Covid test negative.
[2021-07-18] MEDS: DOCUSATE SODIUM 100 MG CAP PO SCH ×2 (09:58→22:48)
[2021-07-18] MEDS: CETIRIZINE 10 MG TAB PO SCH (09:58)
[2021-07-18] MEDS: BENZTROPINE 1 MG TAB PO SCH ×2 (09:58→22:49)
[2021-07-18] MEDS: PROPRANOLOL 10 MG TAB PO SCH ×2 (10:08→22:49)
[2021-07-18] MEDS: LITHIUM CARBONATE 150 MG CAP PO SCH (22:00)
[2021-07-18] MEDS: QUEtiapine 100 MG TAB PO SCH (22:49)
[2021-07-18] MEDS: cloNIDine 0.1 MG TAB PO SCH (23:10)
[2021-07-18] MEDS: TOPIRAMATE TAB 25 MG TAB PO SCH (23:10)
[2021-07-19] MEDS: QUEtiapine 25 MG TAB PO SCH ×3 (07:55→18:16)
[2021-07-19] MEDS: DOCUSATE SODIUM 100 MG CAP PO SCH ×5 (07:55→21:52)
[2021-07-19] MEDS: cloNIDine 0.1 MG TAB PO SCH ×3 (07:56→21:52)
[2021-07-19] MEDS: LITHIUM CARBONATE 150 MG CAP PO SCH ×3 (07:56→21:53)
[2021-07-19] MEDS: metFORMIN XR 500MG TAB PO SCH ×3 (07:56→18:11)
[2021-07-19] MEDS: TOPIRAMATE TAB 25 MG TAB PO SCH ×3 (07:57→21:53)
[2021-07-19] MEDS: PROPRANOLOL 10 MG TAB PO SCH ×5 (07:57→21:53)
[2021-07-19] MEDS: BENZTROPINE 1 MG TAB PO SCH ×3 (07:57→21:53)
[2021-07-19] MEDS: CETIRIZINE 10 MG TAB PO SCH ×2 (07:57→11:18)
--- NOTE | 2021-07-19 17:47 | Emergency Department Report ---
Blank Doc - Documentation Documentation: Patient is discharged. Awaiting transport. No pending medical issues at this time
[2021-07-19] MEDS: QUEtiapine 100 MG TAB PO SCH (21:54)
[2021-07-20 02:48] VITALS: BP 104/66
== END 2021-07-20 09:00 | disposition home or self-care (01) ==
LOC: EEVIPCON 22:19 → ED 22:19
DX: F31.9 Bipolar disorder, unspecified (principal); F91.1 Conduct disorder, childhood-onset type; F84.0 Autistic disorder; Z91.018 Allergy to other foods; Z20.822 Contact with and (suspected) exposure to COVID-19; Z88.0 Allergy status to penicillin; Z88.8 Allergy status to other drugs, medicaments and biological substances; Z91.011 Allergy to milk products; Z88.9 Allergy status to unspecified drugs, medicaments and biological substances
CPT/HCPCS: 36415; 71046; 80053; 84703; 85007; 85025; 96372; 99285; J2060; J3486; Q0177; U0003; 80320; 99284; G0480